=== PATIENT | male | born 1990 | race African-American/Black ===

== ENCOUNTER 2016-11-18 09:33 | Emergency (ER) | payer OTHER ==
[2016-11-18 09:42] VITALS: BP 147/96; PULSE 86; TEMP 98.4; BMI 24.6
--- NOTE | 2016-11-18 10:30 | PDOC ---
History of Present Illness - General Chief Complaint: Edema Stated Complaint: INJURY Time Seen by Provider: 11/18/16 10:06 History Source: Patient Exam Limitations: No Limitations - History of Present Illness Initial Comments: 11/18/16 10:23 Patient is a 26-year-old male history of asthma presents emergency Department with right lower lip swelling. She reports yesterday he was working and some debris fell on his face he felt some irritation to right lower lip than pimple formed under right lateral lower lip and swelling started. Denies any shortness of breath, no wheezing, no difficulty swallowing, no throat pain. No fever. No open areas. Denies any bug bite. Allergies: No known allergies Medications: None Family History: Non-contributory Social History: Denies smoking, alcohol use, or IVDU Review of Systems GENERAL/CONSTITUTIONAL: No fever or chills. No weakness. No weight change. HEAD, EYES, EARS, NOSE AND THROAT: No change in vision. No ear pain or discharge. No sore throat. Pus filled vesicle to right lower lip with surrounding swelling. No erythema. CARDIOVASCULAR: No chest pain or shortness of breath. RESPIRATORY: No cough, wheezing, or hemoptysis. GASTROINTESTINAL: No nausea, vomiting, diarrhea or constipation. No rectal bleeding. GENITOURINARY: No dysuria, frequency, or change in urination. MUSCULOSKELETAL: No joint or muscle swelling or pain. No neck or back pain. SKIN : No rash or easy bruising. Edema to the right lower lip. NEUROLOGIC: No headache, vertigo, loss of consciousness, or loss of sensation. PSYCHIATRIC: No depression or anxiety. ENDOCRINE: No increased thirst. No abnormal weight change. HEMATOLOGIC/LYMPHATIC: No anemia, easy bleeding, or history of blood clots. ALLERGIC/IMMUNOLOGIC: No hives or skin allergy. No latex allergy. Physical Exam: GENERAL: The patient is awake, alert, and fully oriented, in no acute distress. HEAD: Normal with no signs of trauma. EYES: Pupils equal, round and reactive to light, extraocular movements intact, sclera anicteric, conjunctiva clear. ENT: Ears normal, nares patent, oropharynx clear without exudates. Moist mucous membranes. No uvula deviation. small Pus filled vesicle to right lower lip with surrounding swelling. No erythema. No warmth to area. NECK: Normal range of motion, supple without lymphadenopathy, JVD, or masses. LUNGS: Breath sounds equal, clear to auscultation bilaterally. No wheezes, and no crackles. HEART: Regular rate and rhythm, normal S1 and S2 without murmur, rub or gallop. ABDOMEN: Soft, nontender, normoactive bowel sounds. No guarding, no rebound. No masses. No bruising or abrasions MUSCULOSKELETAL: Normal range of motion, no edema. No clubbing or cyanosis. No cords, erythema, or tenderness. No CVA Tenderness with fist. NEUROLOGICAL: Cranial nerves II through XII grossly intact. Normal speech, normal gait. SKIN: Warm, Dry, normal turgor, no rashes or lesions noted. Past History - Past Medical History Allergies/Adverse Reactions: Allergies Allergy/AdvReac Type Severity Reaction Status Date / Time seafood Allergy Mild Swelling Uncoded 11/18/16 09:44 Home Medications: Ambulatory Orders Cephalexin [Keflex] 500 mg PO TID #30 capsule 11/18/16 Ibuprofen [Motrin -] 600 mg PO QID #28 tablet 11/18/16 Sulfamethoxazole/Trimethoprim [Bactrim Ds -] 1 tab PO BID #14 tablet 11/18/16 - Psycho/Social/Smoking Cessation Hx Anxiety: No Suicidal Ideation: No Smoking History: Current every day smoker Have you smoked in the past 12 months: No Number of Cigarettes Smoked Daily: 10 Cigars Per Day: 3 Information on smoking cessation initiated: No Hx Alcohol Use: Yes (socially) Drug/Substance Use Hx: No *Physical Exam - Vital Signs Last Vital Signs Temp Pulse Resp BP Pulse Ox 98.4 F 86 16 147/96 100 11/18/16 09:33 11/18/16 09:33 11/18/16 09:33 11/18/16 09:33 11/18/16 09:33 Medical Decision Making - Medical Decision Making 11/18/16 12:42 A/P: Patient here for evaluation of pus filled vesicle to right lower lip consistent with pimple. Does not appear to be an abscess there is no surrounding erythema edema or warmth. Patient admits to manipulating area to try to pop pimple. Small pus filled vesicle was able to be unroofed and specimen sent for culture. We will start patient on Keflex and Bactrim, follow- up with emergency Department in 2 days if area appears to be abscess forming. Warm soaks today then followed by ice. *DC/Admit/Observation/Transfer Diagnosis at time of Disposition: Pimples, Swollen lip - Discharge Dispostion Disposition: HOME Condition at time of disposition: Good Admit: No - Prescriptions Prescriptions: Sulfamethoxazole/Trimethoprim [Bactrim Ds -] 1 tab PO BID #14 tablet Cephalexin [Keflex] 500 mg PO TID #30 capsule Ibuprofen [Motrin -] 600 mg PO QID #28 tablet - Referrals Referrals: Trae Sky MD [Primary Care Provider] - - Patient Instructions Additional Instructions: Do warm soaks to area for the next several hours, then ice to reduce swelling. Please take Antibiotics for the next several days if any increased swelling past the line of mustache , difficulty breathing, or any other concerns past the line of mustache please return immediately to ER. If any visible abscess please return to emergency department for evaluation - Post Discharge Activity Work/School Note: Back to Work
== END 2016-11-18 10:45 | disposition home or self-care (01) ==
LOC: JERFT 09:33
DX: R23.8 Other skin changes (principal); W22.8XXA Striking against or struck by other objects, initial encounter; Y93.89 Activity, other specified; Y92.038 Other place in apartment as the place of occurrence of the external cause; Y99.0 Civilian activity done for income or pay
CPT/HCPCS: 87070; 87205; 99281-25